=== PATIENT | female | born 1965 | race African-American/Black ===

== ENCOUNTER 2016-08-07 14:06 | Emergency (ER) | payer OTHER ==
[~2016-08-07] VITALS: Ht 162.6 cm; Wt 145.7 kg
[~2016-08-07 14:06] MED LIST: AMLODIPINE BESYL5 MG PO; AMOXICILLIN875 MG PO; ATIVAN0.5 MG PO; CHOLESTEROL MED; CLINDAMYCIN HC300 MG PO; CYMBALTA30 MG PO; CYMBALTA60 MG PO; CYTOTEC100 MCG PO; DOXYCYCLINE HY100 M3 PO; FLUID PILL; HTN MEDICATION; INDOCIN50 MG PO; LEVAQUIN500 MG PO; LEVAQUIN750 MG PO; LYRICA50 MG PO; MEDROL DOSEPAK4 MG PO; MOBIC15 MG PO; MOBIC7.5 MG PO; MOTRIN800 MG PO; NAPROSYN500 MG PO; NICOTINE PATCH1 EAC1 TD; NORVASC5 MG PO; PEN-VEE K,VEET500 MG PO; PERCOCET 5/31 TABLET PO; PHENAZOPYRIDIN200 MG PO; PHENTERMINE H37.5 MG PO; PREDNISONE10 M1 PO; PREDNISONE10 MG PO; PREDNISONE20 MG PO; PREDNISONE50 MG PO; PROAIR HFA8.5 GM IH; PROAIR RESPICL90 MCG IH; PROVENTIL HFA6.7 GM IH; PROVENTIL,2.5 MG/3 M IH; ROBITUSSIN AC,T10 ML PO; SIMVASTATIN20 MG PO; SKELAXIN800 MG PO; TUSSIONEX PENN473 ML PO; TYLENOL WITH C1 EACH PO; VALIUM5 MG PO; VENTOLIN HFA18 GM IH; VITAMIN D250000 UNIT PO; ZITHROMAX Z-PA250 MG PO; ZITHROMAX250 MG PO
[2016-08-07 16:13] LABS: MCH 28.4 PG (29.0-34.0); MCV 88.8 FL (83-99); MEAN PLAT.VOLUME 12.6 uM^3 (9.5-12.4); PLATELET COUNT 237 K/uL (156-360); RBC DIS.WIDTH-CV 14.2 % (11.8-14.6); RBC DIS.WIDTH-SD 46.1 % (39-53); RED BLOOD COUNT 5.18 M/uL (3.80-5.20); WHITE BLOOD COUNT 10.6 K/uL (4.1-10.2)
[2016-08-07 16:24] LABS: CHLORIDE 105 mEq/L (99-109); POTASSIUM 3.8 mEq/L (3.7-5.4); SODIUM 141 mEq/L (136-147)
[2016-08-07 16:26] LABS: GLUCOSE 147 mg/dL (70-99)
[2016-08-07 16:27] LABS: ANION GAP 12 MEQ/L (2-14)
[2016-08-07 16:30] LABS: GFR ESTIMATE (CALCULATED) > 59 mL/min/; UREA NITROGEN (BUN) 8 mg/dL (9-23)
[2016-08-07 17:27] LABS: D-DIMER ELISA 0.33 mg/L FEU (< 0.57)
[2016-08-07] MEDS ORDERED: VENTOLIN HFA18 GM IH (18:56)
[2016-08-07] MEDS ORDERED: PREDNISONE20 MG PO (18:56)
[2016-08-07] MEDS ORDERED: ZITHROMAX Z-PA250 MG PO (18:56)
[2016-08-07 19:29] VITALS: BP 132/104
== END 2016-08-07 19:29 | disposition home or self-care (01) ==
LOC: EME 14:06
DX: J20.9 Acute bronchitis, unspecified (principal); E78.5 Hyperlipidemia, unspecified; Z87.01 Personal history of pneumonia (recurrent); F17.200 Nicotine dependence, unspecified, uncomplicated
CPT/HCPCS: 71020; 80048; 85027; 85379; 94640; 99281; 99283

== ENCOUNTER 2016-09-15 07:14 | Emergency (ER) | payer OTHER ==
[~2016-09-15] VITALS: Ht 154.9 cm; Wt 146.0 kg
[2016-09-15 08:34] LABS: EOSINOPHIL (%) 1.5 % (0-5); EOSINOPHIL COUNT 0.1 K/uL (0-0.3); HEMATOCRIT 41.5 % (36.0-46.0); IMMATURE GRANULOCYTE (%) 0.5 % (0.0-0.7); INSTRUMENT ABS NEUTROPHIL CT 6.2 K/uL; LYMPHOCYTE COUNT 1.8 K/uL (1.0-2.8); MCH 28.7 PG (29.0-34.0); MCHC 31.8 G/DL (30.0-36.0); MCV 90.2 FL (83-99); MONOCYTE (%) 5.2 % (3-12); MONOCYTE COUNT 0.5 K/uL (0-0.8); NEUTROPHIL (%) 72.2 % (45-76); NEUTROPHIL COUNT 6.2 K/uL (1.8-6.4); PLATELET COUNT 199 K/uL (156-360); RBC DIS.WIDTH-CV 13.8 % (11.8-14.6); RBC DIS.WIDTH-SD 45.6 % (39-53); WHITE BLOOD COUNT 8.6 K/uL (4.1-10.2)
[2016-09-15 08:42] LABS: CHLORIDE 105 mEq/L (99-109); POTASSIUM 3.9 mEq/L (3.7-5.4); SODIUM 139 mEq/L (136-147)
[2016-09-15 08:44] LABS: GLUCOSE 135 mg/dL (70-99)
[2016-09-15 08:45] LABS: ANION GAP 10 MEQ/L (2-14)
[2016-09-15 08:48] LABS: GFR ESTIMATE (CALCULATED) > 59 mL/min/; UREA NITROGEN (BUN) 7 mg/dL (9-23)
[2016-09-15] MEDS ORDERED: ZITHROMAX Z-PA250 MG PO (10:59)
[2016-09-15] MEDS ORDERED: PROAIR HFA8.5 GM IH (10:59)
[2016-09-15] MEDS ORDERED: PREDNISONE50 MG PO (10:59)
[2016-09-15 11:08] VITALS: BP 148/70
== END 2016-09-15 11:21 | disposition home or self-care (01) ==
LOC: EME 07:14
PROVIDERS: Emergency Medicine
DX: J20.9 Acute bronchitis, unspecified (principal); E78.5 Hyperlipidemia, unspecified; F17.200 Nicotine dependence, unspecified, uncomplicated
CPT/HCPCS: 71020; 80048; 85025; 94640; 94640 76; 99281; 99284; J7512

== ENCOUNTER 2016-12-02 19:31 | Emergency (ER) | payer OTHER ==
[~2016-12-02] VITALS: Ht 162.6 cm; Wt 143.2 kg
[2016-12-02] MEDS ORDERED: NAPROXEN500 MG PO (21:04)
[2016-12-02] MEDS ORDERED: PERCOCET 5/31 TABLET PO (21:04)
[2016-12-02 21:20] VITALS: BP 151/86
== END 2016-12-02 21:21 | disposition home or self-care (01) ==
LOC: EME 19:31
DX: M17.0 Bilateral primary osteoarthritis of knee (principal); M54.30 Sciatica, unspecified side; G89.29 Other chronic pain; E78.5 Hyperlipidemia, unspecified; F32.9 Major depressive disorder, single episode, unspecified; F17.200 Nicotine dependence, unspecified, uncomplicated
CPT/HCPCS: 73564; 99281; 99284

== ENCOUNTER 2017-01-20 12:25 | Emergency (ER) | payer OTHER ==
[~2017-01-20] VITALS: Ht 167.6 cm; Wt 145.1 kg
[~2017-01-20 12:25] MED LIST changes: +NAPROXEN500 MG PO
[2017-01-20] MEDS ORDERED: PREDNISONE20 MG PO (15:45)
[2017-01-20] MEDS ORDERED: ZITHROMAX Z-PA250 MG PO (15:45)
[2017-01-20] MEDS ORDERED: TESSALON PERLE100 MG PO (15:45)
[2017-01-20] MEDS ORDERED: VENTOLIN HFA18 GM IH (15:45)
[2017-01-20 16:05] VITALS: BP 153/62
== END 2017-01-20 16:14 | disposition home or self-care (01) ==
LOC: EME 12:25
DX: J20.9 Acute bronchitis, unspecified (principal); E78.5 Hyperlipidemia, unspecified; F17.200 Nicotine dependence, unspecified, uncomplicated
CPT/HCPCS: 71020; 93005; 94640; 94640 76; 99281; 99285; J7512

== ENCOUNTER 2017-01-22 06:50 | Emergency (ER) | payer OTHER ==
[~2017-01-22] VITALS: Ht 165.1 cm; Wt 144.2 kg
[~2017-01-22 06:50] MED LIST changes: +TESSALON PERLE100 MG PO
[2017-01-22 09:32] LABS: EOSINOPHIL (%) 0.2 % (0-5); HEMATOCRIT 43.8 % (36.0-46.0); IMMATURE GRANULOCYTE (%) 0.6 % (0.0-0.7); IMMATURE GRANULOCYTE COUNT 0.1 K/uL; LYMPHOCYTE COUNT 1.8 K/uL (1.0-2.8); MCH 28.8 PG (29.0-34.0); MCHC 32.2 G/DL (30.0-36.0); MCV 89.4 FL (83-99); MEAN PLAT.VOLUME 12.4 uM^3 (9.5-12.4); MONOCYTE (%) 3.6 % (3-12); MONOCYTE COUNT 0.4 K/uL (0-0.8); PLATELET COUNT 254 K/uL (156-360); RBC DIS.WIDTH-CV 13.2 % (11.8-14.6); RBC DIS.WIDTH-SD 43.4 % (39-53); WHITE BLOOD COUNT 12.4 K/uL (4.1-10.2)
[2017-01-22 09:41] LABS: CHLORIDE 102 mEq/L (99-109); POTASSIUM 5.1 mEq/L (3.7-5.4); SODIUM 140 mEq/L (136-147)
[2017-01-22 09:43] LABS: GLUCOSE 164 mg/dL (70-99)
[2017-01-22 09:44] LABS: ANION GAP 14 MEQ/L (2-14)
[2017-01-22 09:45] LABS: TOTAL BILIRUBIN 0.3 mg/dL (0.0-1.0)
[2017-01-22 09:46] LABS: ALKALINE PHOSPHATASE 112 IU/L (3-129)
[2017-01-22 09:47] LABS: GFR ESTIMATE (CALCULATED) > 59 mL/min/
[2017-01-22 09:48] LABS: UREA NITROGEN (BUN) 9 mg/dL (9-23)
[2017-01-22 09:53] LABS: TROP-I INTERPRETATION NEGATIVE; TROPONIN-I < 0.01 ng/mL (0.0-0.30)
[2017-01-22 11:16] LABS: ADD MIUA? NO; BILIRUBIN NEGATIVE; BLOOD NEGATIVE; COLOR YELLOW ((YELLOW)); GLUCOSE (STRIP) NEGATIVE; KETONES NEGATIVE; LEUKOCYTES NEGATIVE; NITRITE NEGATIVE; PROTEIN (STRIP) NEGATIVE; SPECIFIC GRAVITY 1.021 (1.000-1.030); UCUL ADDED? NO; UROBILINOGEN 0.2 MG/DL (0.2-1.0)
[2017-01-22] MEDS ORDERED: NAPROXEN500 MG PO (11:29)
[2017-01-22 12:29] VITALS: BP 119/84
== END 2017-01-22 12:30 | disposition home or self-care (01) ==
LOC: EME 06:50
PROVIDERS: Physician Assistant
PROC: 2W3JX1Z Immobilization of Right Finger using Splint (ICD-10-PCS; principal; 2017-01-22)
DX: S62.624A Displaced fracture of middle phalanx of right ring finger, initial encounter for closed fracture (principal); S56.10 Unspecified injury of flexor muscle, fascia and tendon of other and unspecified finger at forearm level; R55 Syncope and collapse; M79.675 Pain in left toe(s); W18.30XA Fall on same level, unspecified, initial encounter; E78.5 Hyperlipidemia, unspecified; F17.200 Nicotine dependence, unspecified, uncomplicated
CPT/HCPCS: 71020; 73140; 73660; 80053; 81003; 84484; 85025; 93005; 99281; 99284; J3010

== ENCOUNTER 2017-03-09 10:33 | Emergency (ER) | payer OTHER ==
[~2017-03-09] VITALS: Ht 162.6 cm; Wt 145.8 kg
[2017-03-09] MEDS ORDERED: ATARAX,VISTARIL50 MG PO (13:33)
[2017-03-09] MEDS ORDERED: BETAMETHASONE D50 GM TP (13:33)
[2017-03-09] MEDS ORDERED: PREDNISONE10 MG PO (13:34)
[2017-03-09 14:06] VITALS: BP 177/104
== END 2017-03-09 14:07 | disposition home or self-care (01) ==
LOC: EME 10:33
DX: L30.9 Dermatitis, unspecified (principal); E78.5 Hyperlipidemia, unspecified; F32.9 Major depressive disorder, single episode, unspecified; F17.200 Nicotine dependence, unspecified, uncomplicated
CPT/HCPCS: 99281; 99284; J1100; Q0177